=== PATIENT | male | born 1990 | race African-American/Black ===

== ENCOUNTER 2017-09-16 10:20 | Emergency (ER) | payer OTHER ==
[2017-09-16 10:41] VITALS: TEMP 98; BMI 24.3
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
[2017-09-16] MEDS ORDERED: diazePAM 5 MG TABLET PO ONE (11:20)
[2017-09-16] MEDS ORDERED: IBUPROFEN 600 MG TABLET (FP) PO ONE ×2 (11:20→11:28)
[2017-09-16] MEDS ORDERED: diazePAM 5 MG TABLET ONE (11:28)
[2017-09-16 13:17] VITALS: BP 136/70; PULSE 88
== END 2017-09-16 13:17 | disposition home or self-care (01) ==
LOC: JER 10:20
DX: V48.5XXA Car driver injured in noncollision transport accident in traffic accident, initial encounter (principal); Y93.89 Activity, other specified; Y92.410 Unspecified street and highway as the place of occurrence of the external cause; M62.838 Other muscle spasm
CPT/HCPCS: 70450-TC; 72125-TC; 99283-25